=== PATIENT | female | born 1985 | race American Indian/Alaskan Native ===

== ENCOUNTER 2021-04-03 23:48 | Inpatient (IN) | payer OTHER ==
[2021-04-04] MEDS ORDERED: diphenhydrAMINE 50 MG/ML VIAL IV ONE ×2 (01:10→14:27)
[2021-04-04] MEDS ORDERED: methylPREDNISolone Sod Succinate 125 MG/2 ML INJ IV ONE (01:10)
--- NOTE | 2021-04-04 01:15 | Emergency Department Report ---
History of Present Illness - General Chief Complaint: Overdose Stated Complaint: OVERDOSE, PT FEELS LIKE TONGUE IS SWELLING Time Seen by Provider: 04/04/21 00:58 Source: EMS Mode of arrival: Stretcher Limitations: No Limitations - History of Present Illness Initial Comments: 36-year-old female presents to the ED in police custody for possible suicide at [facility] via pill overdose. Patient states she has a history of sickle cell trait. She is been incarcerated for last 8 months and has been feeling suicidal since her arrest. Patient thinks she is on Risperdal for "depression". She states she was initially refusing this medication from the snf. However, while medication was being administered to inmates she grabbed a handful of medications from the tray and swallowed them. The officer at the scene and the present I do not know which medications were on the tray. Patient complaining that her tongue intermittently feels stiff and like she is going to swallow it. Patient states history of suicidal ideation after being kicked out of her mot her's house at age 18. She denies auditory or visual hallucinations. Patient states she is vaccinated for COVID but has yet to receive her booster - Related Data Allergies Allergy/AdvReac Type Severity Reaction Status Date / Time No Known Allergies Allergy Unverified 04/04/21 01:46 ED Review of Systems ROS: Stated complaint: OVERDOSE, PT FEELS LIKE TONGUE IS SWELLING Other details as noted in HPI Comment: All other systems reviewed and negative ED Physical Exam - General Limitations: No Limitations - Other Other exam information: General: No acute distress Head: Atraumatic Eyes: normal appearance ENT: Moist mucous membranes, no tongue swelling, no hoarseness or muffled voice Neck: Normal appearance, no midline tenderness Chest: Clear to auscultation bilaterally CV: Regular rate and rhythm Abdomen: Soft, normal bowel sounds, nontender, nondistended, no rebound or g uarding Back: Normal inspection Extremity: Normal inspection, full range of motion Neuro: Alert O x 3, no facial asymmetry, speech clear, no gross motor sensory deficit Psych: Cooperative, slightly anxious, talkative, intermittent episode of feeling like her tongue is stiff. Patient is exhibiting signs of psychosis in the ED ED Course Vital Signs 04/04/21 00:44 Temperature 98.4 F Pulse Rate 104 H Respiratory 18 Rate Blood Pressure 152/83 [Left] O2 Sat by Pulse 97 Oximetry - Reevaluation(s) Reevaluation #1: 04/04/21 02:24 Patient did receive Benadryl and Solu-Medrol given tongue symptoms. I suspect that patient is having a dystonic reaction. Patient appeared to be familiar with this reaction in the past and was also requesting Benadryl Unfortunately the snf cannot specify which meds patient might have taken off the medication tray. Nurse here informs me that patient is urinating frequently in the ED. It is possible that patient might have taken a diuretic. Normal saline ordered for urinary frequency and mild hyponatremia. - Consultations Consultation #1: 04/04/21 04:26 case d/w Jadyn with poison control. Recommend 24-hour admission due to unknown ingestion. Recommends to monitor for toxidromes, hypoglycemia, QTC and QRS prolongation or bradycardia. Recommend vital sign monitoring. recommends to use benzo as needed for sedation and to avoid antipsychotics such as Haldol and Geodon due to risk of decreasing seizure threshold. If QRS greater than 100 recommend bicarb and to contact poison control for further instructions. Repeat chemistries, aspirin, and Tylenol 4 hours. Monitor glucose level. ED Medical Decision Making - Lab Data Result diagrams: 04/04/21 01:19 04/04/21 01:19 Lab Results 04/04/21 04/04/21 04/04/21 Range/Units 01:19 01:19 01:19 WBC 6.6 (4.5-11.0) K/mm3 RBC 4.09 (3.65-5.03) M/mm3 Hgb 11.5 L (11.8-15.2) gm/dl Hct 35.2 L (35.5-45.6) % MCV 86 (84-94) fl MCH 28 (28-32) pg MCHC 33 (32-34) % RDW 13.9 (13.2-15.2) % Plt Count 239 (140-440) K/mm3 Lymph % (Auto) 18.8 (13.4-35.0) % Carter % (Auto) 9.2 H (0.0-7.3) % Eos % (Auto) 0.2 (0.0-4.3) % Baso % (Auto) 0.6 (0.0-1.8) % Lymph # (Auto) 1.2 (1.2-5.4) K/mm3 Carter # (Auto) 0.6 (0.0-0.8) K/mm3 Eos # (Auto) 0.0 (0.0-0.4) K/mm3 Baso # (Auto) 0.0 (0.0-0.1) K/mm3 Seg Neutrophils % 71.2 H (40.0-70.0) % Seg Neutrophils # 4.7 (1.8-7.7) K/mm3 Sodium 133 L (137-145) mmol/L Potassium 3.7 (3.6-5.0) mmol/L Chloride 98.1 (98-107) mmol/L Carbon Dioxide 20 L (22-30) mmol/L Anion Gap 19 mmol/L BUN 7 L (9-20) mg/dL Creatinine 0.7 L (0.8-1.3) mg/dL Estimated GFR > 60 ml/min BUN/Creatinine Ratio 10 % Glucose 109 H (75-100) mg/dL Osmolality 274 Mosm/kg Calcium 8.7 (8.4-10.2) mg/dL Total Bilirubin 0.40 (0.1-1.2) mg/dL AST 34 (5-40) units/L ALT 24 (7-56) units/L Alkaline Phosphatase 64 (35-129) units/L Total Protein 6.9 (6.3-8.2) g/dL Albumin 4.2 (3.9-5) g/dL Albumin/Globulin Ratio 1.6 % HCG, Qual (Negative) Urine Color (Yellow) Urine Turbidity (Clear) Urine pH (5.0-7.0) Ur Specific [place] (1.003-1.030) Urine Protein (Negative) mg/dL Urine Glucose (UA) (Negative) mg/dL Urine Ketones (Negative) mg/dL Urine Blood (Negative) Urine Nitrite (Negative) Urine Bilirubin (Negative) Urine Urobilinogen (<2.0) mg/dL Ur Leukocyte Esterase (Negative) Urine WBC (Auto) (0.0-6.0) /HPF Urine RBC (Auto) (0.0-6.0) /HPF U Epithel Cells (Auto) (0-13.0) /HPF Salicylates (2.8-20.0) mg/dL Urine Opiates Screen Urine Methadone Screen Acetaminophen (10.0-30.0) ug/mL Ur Barbiturates Screen Ur Phencyclidine Scrn Ur Amphetamines Screen U Benzodiazepines Scrn Urine Cocaine Screen U Marijuana (THC) Screen Drugs of Abuse Note Plasma/Serum Alcohol (0-0.07) % 04/04/21 04/04/21 04/04/21 Range/Units 01:19 01:19 01:19 WBC (4.5-11.0) K/mm3 RBC (3.65-5.03) M/mm3 Hgb (11.8-15.2) gm/dl Hct (35.5-45.6) % MCV (84-94) fl MCH (28-32) pg MCHC (32-34) % RDW (13.2-15.2) % Plt Count (140-440) K/mm3 Lymph % (Auto) (13.4-35.0) % Carter % (Auto) (0.0-7.3) % Eos % (Auto) (0.0-4.3) % Baso % (Auto) (0.0-1.8) % Lymph # (Auto) (1.2-5.4) K/mm3 Carter # (Auto) (0.0-0.8) K/mm3 Eos # (Auto) (0.0-0.4) K/mm3 Baso # (Auto) (0.0-0.1) K/mm3 Seg Neutrophils % (40.0-70.0) % Seg Neutrophils # (1.8-7.7) K/mm3 Sodium (137-145) mmol/L Potassium (3.6-5.0) mmol/L Chloride (98-107) mmol/L Carbon Dioxide (22-30) mmol/L Anion Gap mmol/L BUN (9-20) mg/dL Creatinine (0.8-1.3) mg/dL Estimated GFR ml/min BUN/Creatinine Ratio % Glucose (75-100) mg/dL Osmolality Mosm/kg Calcium (8.4-10.2) mg/dL Total Bilirubin (0.1-1.2) mg/dL AST (5-40) units/L ALT (7-56) units/L Alkaline Phosphatase (35-129) units/L Total Protein (6.3-8.2) g/dL Albumin (3.9-5) g/dL Albumin/Globulin Ratio % HCG, Qual (Negative) Urine Color (Yellow) Urine Turbidity (Clear) Urine pH (5.0-7.0) Ur Specific [place] (1.003-1.030) Urine Protein (Negative) mg/dL Urine Glucose (UA) (Negative) mg/dL Urine Ketones (Negative) mg/dL Urine Blood (Negative) Urine Nitrite (Negative) Urine Bilirubin (Negative) Urine Urobilinogen (<2.0) mg/dL Ur Leukocyte Esterase (Negative) Urine WBC (Auto) (0.0-6.0) /HPF Urine RBC (Auto) (0.0-6.0) /HPF U Epithel Cells (Auto) (0-13.0) /HPF Salicylates < 0.3 L (2.8-20.0) mg/dL Urine Opiates Screen Urine Methadone Screen Acetaminophen 5.0 L (10.0-30.0) ug/mL Ur Barbiturates Screen Ur Phencyclidine Scrn Ur Amphetamines Screen U Benzodiazepines Scrn Urine Cocaine Screen U Marijuana (THC) Screen Drugs of Abuse Note Plasma/Serum Alcohol < 0.01 (0-0.07) % 04/04/21 04/04/21 04/04/21 Range/Units 01:19 Unknown Unknown WBC (4.5-11.0) K/mm3 RBC (3.65-5.03) M/mm3 Hgb (11.8-15.2) gm/dl Hct (35.5-45.6) % MCV (84-94) fl MCH (28-32) pg MCHC (32-34) % RDW (13.2-15.2) % Plt Count (140-440) K/mm3 Lymph % (Auto) (13.4-35.0) % Carter % (Auto) (0.0-7.3) % Eos % (Auto) (0.0-4.3) % Baso % (Auto) (0.0-1.8) % Lymph # (Auto) (1.2-5.4) K/mm3 Carter # (Auto) (0.0-0.8) K/mm3 Eos # (Auto) (0.0-0.4) K/mm3 Baso # (Auto) (0.0-0.1) K/mm3 Seg Neutrophils % (40.0-70.0) % Seg Neutrophils # (1.8-7.7) K/mm3 Sodium (137-145) mmol/L Potassium (3.6-5.0) mmol/L Chloride (98-107) mmol/L Carbon Dioxide (22-30) mmol/L Anion Gap mmol/L BUN (9-20) mg/dL Creatinine (0.8-1.3) mg/dL Estimated GFR ml/min BUN/Creatinine Ratio % Glucose (75-100) mg/dL Osmolality Mosm/kg Calcium (8.4-10.2) mg/dL Total Bilirubin (0.1-1.2) mg/dL AST (5-40) units/L ALT (7-56) units/L Alkaline Phosphatase (35-129) units/L Total Protein (6.3-8.2) g/dL Albumin (3.9-5) g/dL Albumin/Globulin Ratio % HCG, Qual Negative (Negative) Urine Color Colorless (Yellow) Urine Turbidity Clear (Clear) Urine pH 7.0 (5.0-7.0) Ur Specific [place] 1.005 (1.003-1.030) Urine Protein <15 mg/dl (Negative) mg/dL Urine Glucose (UA) Neg (Negative) mg/dL Urine Ketones Neg (Negative) mg/dL Urine Blood Neg (Negative) Urine Nitrite Neg (Negative) Urine Bilirubin Neg (Negative) Urine Urobilinogen < 2.0 (<2.0) mg/dL Ur Leukocyte Esterase Neg (Negative) Urine WBC (Auto) 0.0 (0.0-6.0) /HPF Urine RBC (Auto) < 1.0 (0.0-6.0) /HPF U Epithel Cells (Auto) < 1.0 (0-13.0) /HPF Salicylates (2.8-20.0) mg/dL Urine Opiates Screen Negative Urine Methadone Screen Negative Acetaminophen (10.0-30.0) ug/mL Ur Barbiturates Screen Negative Ur Phencyclidine Scrn Negative Ur Amphetamines Screen Negative U Benzodiazepines Scrn Negative Urine Cocaine Screen Negative U Marijuana (THC) Screen Negative Drugs of Abuse Note Disclamer Plasma/Serum Alcohol (0-0.07) % - EKG Data EKG shows normal: sinus rhythm, intervals (QTC 445), QRS complexes (QRS duration 77), ST-T waves (No STEMI) Rate: normal (93) - EKG Data 04/04/21 05:02 Repeat EKG at 4:56 AM shows mild tachycardia heart rate 105 with stable QRS duration and QTC - Medical Decision Making 36-year-old female presents to the hospital unknown ingestion. At time of ED evaluation patient exhibiting signs of dystonia and treated with Benadryl. Patient also having urinary frequency and normal saline initiated. Repeat labs ordered per recommendation of poison control. Patient require admission to the hospital for monitoring of toxidromes, changes in EKG, changes in vital signs, and labs. Poison control welcomes any call backs to discuss treatment for any acute changes. Dr Tucker informed of admission 1013 signed consult requested Critical Care Time: Yes Critical care attestation.: If time is entered above; I have spent that time in minutes in the direct care of this critically ill patient, excluding procedure time. Critical Care Time: 35 Minutes of critical care time excluding procedures were used in the care of the patient. I came immediately to the bedside upon patient's arrival. I obtained history from EMS at the bedside. I discussed treatment plan with the nursing team members. I reviewed electronic record. Patient required multiple interventions and reassessments. Poison control contacted ED Disposition Clinical Impression: Suicide attempt, Overdose, In police custody Disposition: ADMITTED INPATIENT Is pt being admited?: Yes Does the pt Need Aspirin: No Condition: Stable Referrals: PRIMARY CARE, [Primary Care Provider] - 3-5 Days Time of Disposition: 04:43 (Dr Felix)
[2021-04-04 01:35] LABS: Basophils % (Auto) 0.6 % (0.0-1.8); Eosinophils % (Auto) 0.2 % (0.0-4.3); Hematocrit 35.2 % (35.5-45.6); Hemoglobin 11.5 gm/dl (11.8-15.2); Lymphocytes # (Auto) 1.2 K/mm3 (1.2-5.4); Lymphocytes % (Auto) 18.8 % (13.4-35.0); Mean Corpuscular HGB Conc 33 % (32-34); Mean Corpuscular Volume 86 fl (84-94); Monocytes # (Auto) 0.6 K/mm3 (0.0-0.8); Monocytes % (Auto) 9.2 % (0.0-7.3); Platelet Count 239 K/mm3 (140-440); Red Blood Count 4.09 M/mm3 (3.65-5.03); Red Cell Distribution Width 13.9 % (13.2-15.2)
[2021-04-04 01:58] LABS: Alanine Aminotransferase 24 units/L (7-56); Albumin 4.2 g/dL (3.9-5); Blood Urea Nitrogen 7 mg/dL (9-20); Calcium 8.7 mg/dL (8.4-10.2); Hemolysis Index 7
[2021-04-04 02:09] LABS: BUN/Creatinine Ratio 10
[2021-04-04] MEDS ORDERED: SODIUM CHLORIDE 0.9% 1000 ML 1,000 ML IV ONE (02:20)
[2021-04-04 02:27] LABS: Bilirubin,Urine NEG (Negative); Blood,Urine NEG (Negative); Color,Urine Colorless (Yellow); Protein,Urine <15 mg/dL mg/dL (Negative); RBC,Urine < 1.0 /HPF (0.0-6.0); Urobilinogen,Urine < 2.0 mg/dL (<2.0)
[2021-04-04 02:55] LABS: Amphetamine Screen,Urine Negative; Benzodiazepines Screen,Urine Negative; Cannabinoid Screen,Urine Negative; Cocaine Screen,Urine Negative; Methadone Screen,Urine Negative; Opiate Screen,Urine Negative
[2021-04-04] MEDS ORDERED: MORPHINE 4 MG/1 ML INJ IV PRN (05:19)
[2021-04-04] MEDS ORDERED: MAGNESIUM HYDROXIDE (MOM) ORAL LIQD UDC PO PRN (05:19)
[2021-04-04] MEDS ORDERED: MORPHINE 2 MG/1 ML INJ IV PRN (05:19)
[2021-04-04] MEDS ORDERED: ONDANSETRON 4 MG/2 ML INJ IV PRN (05:19)
[2021-04-04] MEDS ORDERED: ACETAMINOPHEN 325 MG TAB PO PRN (05:19)
--- NOTE | 2021-04-04 05:24 | History and Physical Report ---
History of Present Illness Date of examination: 04/04/21 Date of admission: 04/04/2021 Chief complaint: Drug overdose History of present illness: 36-year-old -[place] female currently in police custody brought into the emergency room for possible suicide attempt after taking overdose of unknown medications. Patient was said to be in [facility] and while medication was being passed she took a handful of medications being passed. Medications are unknown. Patient states she has been feeling suicidal lately because she has been incarcerated for about 8 months. She has known history of depression and she thinks she is on Risperdal. She had history of suicidal ideation in the past at age 18. Patient denies any homicidal ideations and also indicates she currently does not have any suicidal ideations. Patient states that since the ingestion she has had to urinate more frequently. Patient denies any chest pain or shortness of breath, no nausea vomiting and no abdominal pain. She denies any headache or dizziness denies any diaphoresis. Work-up in the emergency room today, significant findings on the labs were sodium of 133. Poison control was consulted by the ER physician and recommendation was to monitor patient closely. Past History Past Medical History: other (Depression) Past Surgical History: Other (Laceration repair on the scalp) Family history: no significant family history Medications and Allergies Allergies Allergy/AdvReac Type Severity Reaction Status Date / Time No Known Allergies Allergy Unverified 04/04/21 01:46 Active Meds: Active Medications Acetaminophen (Acetaminophen 325 Mg Tab) 650 mg PO Q4H PRN PRN Reason: Pain MILD(1-3)/Fever >100.5/OSEGUERA Heparin Sodium (Porcine) (Heparin 5,000 Unit/1 Ml Vial) 5,000 unit SUB-Q Q8HR MERLY Sodium Chloride (Nacl 0.9% 1000 Ml) 1,000 mls @ 125 mls/hr IV DIRECT MERLY Magnesium Hydroxide (Magnesium Hydroxide (Mom) Oral Liqd Udc) 30 ml PO Q4H PRN PRN Reason: Constipation Morphine Sulfate (Morphine 4 Mg/1 Ml Inj) 4 mg IV Q4H PRN PRN Reason: Pain , Severe (7-10) Morphine Sulfate (Morphine 2 Mg/1 Ml Inj) 2 mg IV Q4H PRN PRN Reason: Pain, Moderate (4-6) Ondansetron HCl (Ondansetron 4 Mg/2 Ml Inj) 4 mg IV Q8H PRN PRN Reason: Nausea And Vomiting Sodium Chloride (Sodium Chloride 0.9% 10 Ml Flush Syringe) 10 ml IV BID MERLY Sodium Chloride (Sodium Chloride 0.9% 10 Ml Flush Syringe) 10 ml IV PRN PRN PRN Reason: LINE FLUSH Review of Systems Constitutional: no fever, no chills Ears, nose, mouth and throat: no nasal congestion, no sore throat Cardiovascular: no chest pain, no palpitations Respiratory: no cough, no shortness of breath Gastrointestinal: no abdominal pain, no nausea, no vomiting, no diarrhea Genitourinary Female: no dysmenorrhea, no pelvic pain, no flank pain, no dysuria, no hematuria Musculoskeletal: no neck pain, no low back pain Integumentary: no rash, no pruritis Neurological: no headaches, no confusion Psychiatric: no anxiety, no insomnia Endocrine: no polyphagia, no polydipsia, no polyuria, no nocturia Exam - Constitutional Vitals: Temp Pulse Resp BP Pulse Ox 98.4 F 104 H 18 152/83 97 04/04/21 00:44 04/04/21 00:44 04/04/21 00:44 04/04/21 00:44 04/04/21 00:44 General appearance: Present: no acute distress, well-nourished - EENT Eyes: Present: PERRL, EOM intact. Absent: scleral icterus ENT: hearing intact, clear oral mucosa, dentition normal - Neck Neck: Present: supple, normal ROM - Respiratory Respiratory effort: normal Respiratory: bilateral: CTA - Cardiovascular Rhythm: regular Heart Sounds: Present: S1 & S2. Absent: systolic murmur, diastolic murmur, rub, click - Extremities Extremities: no ischemia, pulses intact, pulses symmetrical, No edema, normal temperature, normal color, Full ROM Peripheral Pulses: within normal limits - Abdominal General gastrointestinal: Present: soft, non-tender, non-distended, normal bowel sounds. Absent: mass - Integumentary Integumentary: Present: clear, warm, dry. Absent: rash - Musculoskeletal Musculoskeletal: strength equal bilaterally - Psychiatric Psychiatric: appropriate mood/affect, intact judgment & insight, memory intact - Neurologic Neurologic: CNII-XII intact, no focal deficits, moves all extremities Results - Labs CBC & Chem 7: 04/04/21 01:19 04/04/21 05:27 Labs: Abnormal lab results 04/04/21 04/04/21 04/04/21 Range/Units 01:19 01:19 01:19 Hgb 11.5 L (11.8-15.2) gm/dl Hct 35.2 L (35.5-45.6) % Gregg % (Auto) 9.2 H (0.0-7.3) % Seg Neutrophils % 71.2 H (40.0-70.0) % Sodium 133 L (137-145) mmol/L Carbon Dioxide 20 L (22-30) mmol/L BUN 7 L (9-20) mg/dL Creatinine 0.7 L (0.8-1.3) mg/dL Glucose 109 H (75-100) mg/dL Salicylates < 0.3 L (2.8-20.0) mg/dL Acetaminophen (10.0-30.0) ug/mL 04/04/21 Range/Units 01:19 Hgb (11.8-15.2) gm/dl Hct (35.5-45.6) % Gregg % (Auto) (0.0-7.3) % Seg Neutrophils % (40.0-70.0) % Sodium (137-145) mmol/L Carbon Dioxide (22-30) mmol/L BUN (9-20) mg/dL Creatinine (0.8-1.3) mg/dL Glucose (75-100) mg/dL Salicylates (2.8-20.0) mg/dL Acetaminophen 5.0 L (10.0-30.0) ug/mL Assessment and Plan - Patient Problems (1) Overdose Current Visit: Yes Status: Acute Plan to address problem: Patient took a handful of medications [intentional]names unknown. Will monitor closely. (2) Suicide attempt Current Visit: Yes Status: Acute Plan to address problem: Patient has known history of depression. She has been incarcerated for about 8 months. Consult will be placed to mental health for evaluation. (3) DVT prophylaxis Current Visit: Yes Status: Acute Plan to address problem: Patient placed on subcutaneous heparin. (4) Full code status Current Visit: Yes Status: Acute Plan to address problem: Patient is full code.
[2021-04-04 06:06] LABS: Blood Urea Nitrogen 9 mg/dL (7-17); Calcium 9.3 mg/dL (8.4-10.2); Hemolysis Index 8
[2021-04-04 06:18] LABS: BUN/Creatinine Ratio 13
[2021-04-04] MEDS: HEPARIN 5,000 UNIT/1 ML VIAL SUB-Q SCH ×3 (13:58→21:33)
[2021-04-04] MEDS ORDERED: HALOPERIDOL LACTATE 5 MG/1 ML INJ IM SCH (14:00)
--- NOTE | 2021-04-04 14:10 | Event Note ---
Date: 04/04/21 Patient seen in emergency department. Very agitated with pressured speech. She is unsure of what substances she ingested. Reports suicidal ideation currently without a plan. Has attempted suicide in the past but was unsuccessful. Awaiting mental health evaluation. Poison control contacted and updated nurse. Poison control recommends supportive care at this time.
[2021-04-04] MEDS ORDERED: diphenhydrAMINE 50 MG/ML VIAL ONE (14:11)
[2021-04-04] MEDS ORDERED: SODIUM CHLORIDE 0.9% 50 ML IVPB IV PRN (15:24)
[2021-04-04] MEDS: SODIUM CHLORIDE 0.9% 1000 ML 1,000 ML IV SCH (21:37)
[2021-04-05 05:43] LABS: Alanine Aminotransferase 19 units/L (7-56); Albumin 3.7 g/dL (3.9-5); BUN/Creatinine Ratio 18; Blood Urea Nitrogen 16 mg/dL (7-17); Calcium 8.7 mg/dL (8.4-10.2); Hemolysis Index 4
[2021-04-05] MEDS: HEPARIN 5,000 UNIT/1 ML VIAL SUB-Q SCH ×2 (05:55→15:24)
[2021-04-05] MEDS ORDERED: diphenhydrAMINE 25 MG/10 ML ORAL LIQUID PO ONE (06:45)
--- NOTE | 2021-04-05 08:54 | Electrocardiograph Report ---
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
--- NOTE | 2021-04-05 08:54 | Electrocardiograph Report ---
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
--- NOTE | 2021-04-05 08:58 | Electrocardiograph Report ---
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
--- NOTE | 2021-04-05 11:26 | Progress Note ---
Assessment and Plan Assessment and plan: 36-year-old -[place] female currently in police custody brought into the emergency room for possible suicide attempt after taking overdose of unknown medications. Patient was said to be in detention and while medication was being passed she took a handful of medications being passed. Medications are unknown. Patient states she has been feeling suicidal lately because she has been incarcerated for about 8 months. She has known history of depression and she thinks she is on Risperdal. She had history of suicidal ideation in the past at age 18. Patient denies any homicidal ideations and also indicates she currently does not have any suicidal ideations. Patient states that since the ingestion she has had to urinate more frequently. Patient denies any chest pain or shortness of breath, no nausea vomiting and no abdominal pain. She denies any headache or dizziness denies any diaphoresis. Work-up in the emergency room, significant findings on the labs were sodium of 133. Poison control was consulted by the ER physician and recommendation was to monitor patient closely. (1) Overdose Current Visit: Yes Status: Acute Plan to address problem: Patient took a handful of medications [intentional]names unknown. Will monitor closely. Patient reports that she held Resporal for 3 days and took all 3 on the day of her admission. She further states that she is back to ER due to sleepiness and could not breathe. She is currently hemodynamically stable. (2) Suicide attempt Current Visit: Yes Status: Acute Plan to address problem: Patient has known history of depression. She has been incarcerated for about 8 months. Patient currently denies suicidal ideation. She is calm and cooperative. Patient was evaluated by psychiatry in consultation today and recommended to discontinue 1013. Started Abilify 10 mg daily and trazodone 50 mg at bedtime. Psychiatry cleared her discharge. [facility]charge back to [facility] today. Recommended to see a psychiatrist for follow-up. (3) DVT prophylaxis Current Visit: Yes Status: Acute Plan to address problem: Patient placed on subcutaneous heparin. (4) Full code status Current Visit: Yes Status: Acute Plan to address problem: Patient is full code. History Interval history: Patient is currently calm, cooperative, alert and oriented. Stable vital signs. She currently denies suicidal ideation. trouble dispatcher is present given Hospitalist Physical - Constitutional Vitals: Temp Pulse Resp BP Pulse Ox 99.0 F 98 H 20 141/91 98 04/05/21 10:27 04/05/21 10:27 04/05/21 10:27 04/05/21 10:27 04/05/21 10:27 General appearance: Present: no acute distress, well-nourished - EENT Eyes: Present: PERRL. Absent: scleral icterus ENT: clear oral mucosa - Neck Neck: Present: supple - Respiratory Respiratory effort: normal Respiratory: bilateral: CTA - Cardiovascular Rhythm: regular - Extremities Extremities: No edema - Abdominal General gastrointestinal: soft, non-tender - Psychiatric Psychiatric: appropriate mood/affect, cooperative - Neurologic Neurologic: no focal deficits Results - Labs CBC & Chem 7: 04/04/21 01:19 04/05/21 04:28 Labs: Laboratory Last Values WBC 6.6 K/mm3 (4.5-11.0) 04/04/21 01:19 RBC 4.09 M/mm3 (3.65-5.03) 04/04/21 01:19 Hgb 11.5 gm/dl (11.8-15.2) L 04/04/21 01:19 Hct 35.2 % (35.5-45.6) L 04/04/21 01:19 MCV 86 fl (84-94) 04/04/21 01:19 MCH 28 pg (28-32) 04/04/21 01:19 MCHC 33 % (32-34) 04/04/21 01:19 RDW 13.9 % (13.2-15.2) 04/04/21 01:19 Plt Count 239 K/mm3 (140-440) 04/04/21 01:19 Lymph % (Auto) 18.8 % (13.4-35.0) 04/04/21 01:19 Gonzales % (Auto) 9.2 % (0.0-7.3) H 04/04/21 01:19 Eos % (Auto) 0.2 % (0.0-4.3) 04/04/21 01:19 Baso % (Auto) 0.6 % (0.0-1.8) 04/04/21 01:19 Lymph # (Auto) 1.2 K/mm3 (1.2-5.4) 04/04/21 01:19 Gonzales # (Auto) 0.6 K/mm3 (0.0-0.8) 04/04/21 01:19 Eos # (Auto) 0.0 K/mm3 (0.0-0.4) 04/04/21 01:19 Baso # (Auto) 0.0 K/mm3 (0.0-0.1) 04/04/21 01:19 Seg Neutrophils % 71.2 % (40.0-70.0) H 04/04/21 01:19 Seg Neutrophils # 4.7 K/mm3 (1.8-7.7) 04/04/21 01:19 Sodium 143 mmol/L (137-145) D 04/05/21 04:28 Potassium 3.9 mmol/L (3.6-5.0) 04/05/21 04:28 Chloride 110.4 mmol/L (98-107) H 04/05/21 04:28 Carbon Dioxide 21 mmol/L (22-30) L 04/05/21 04:28 Anion Gap 16 mmol/L 04/05/21 04:28 BUN 16 mg/dL (7-17) 04/05/21 04:28 Creatinine 0.9 mg/dL (0.6-1.2) 04/05/21 04:28 Estimated GFR > 60 ml/min 04/05/21 04:28 BUN/Creatinine Ratio 18 % 04/05/21 04:28 Glucose 107 mg/dL (65-100) H 04/05/21 04:28 Osmolality 274 Mosm/kg 04/04/21 01:19 Lactic Acid 1.00 mmol/L (0.7-2.0) 04/04/21 16:25 Calcium 8.7 mg/dL (8.4-10.2) 04/05/21 04:28 Magnesium 1.90 mg/dL (1.7-2.3) 04/04/21 05:27 Total Bilirubin < 0.20 mg/dL (0.1-1.2) 04/05/21 04:28 AST 20 units/L (5-40) 04/05/21 04:28 ALT 19 units/L (7-56) 04/05/21 04:28 Alkaline Phosphatase 58 units/L (35-129) 04/05/21 04:28 Total Protein 6.3 g/dL (6.3-8.2) 04/05/21 04:28 Albumin 3.7 g/dL (3.9-5) L 04/05/21 04:28 Albumin/Globulin Ratio 1.4 % 04/05/21 04:28 HCG, Qual Negative (Negative) 04/04/21 01:19 Urine Color Colorless (Yellow) 04/04/21 Unknown Urine Turbidity Clear (Clear) 04/04/21 Unknown Urine pH 7.0 (5.0-7.0) 04/04/21 Unknown Ur Specific [place] 1.005 (1.003-1.030) 04/04/21 Unknown Urine Protein <15 mg/dl mg/dL (Negative) 04/04/21 Unknown Urine Glucose (UA) Neg mg/dL (Negative) 04/04/21 Unknown Urine Ketones Neg mg/dL (Negative) 04/04/21 Unknown Urine Blood Neg (Negative) 04/04/21 Unknown Urine Nitrite Neg (Negative) 04/04/21 Unknown Urine Bilirubin Neg (Negative) 04/04/21 Unknown Urine Urobilinogen < 2.0 mg/dL (<2.0) 04/04/21 Unknown Ur Leukocyte Esterase Neg (Negative) 04/04/21 Unknown Urine WBC (Auto) 0.0 /HPF (0.0-6.0) 04/04/21 Unknown Urine RBC (Auto) < 1.0 /HPF (0.0-6.0) 04/04/21 Unknown U Epithel Cells (Auto) < 1.0 /HPF (0-13.0) 04/04/21 Unknown Salicylates < 0.3 mg/dL (2.8-20.0) L 04/04/21 05:27 Urine Opiates Screen Negative 04/04/21 Unknown Urine Methadone Screen Negative 04/04/21 Unknown Acetaminophen 5.0 ug/mL (10.0-30.0) L 04/04/21 05:27 Ur Barbiturates Screen Negative 04/04/21 Unknown Ur Phencyclidine Scrn Negative 04/04/21 Unknown Ur Amphetamines Screen Negative 04/04/21 Unknown U Benzodiazepines Scrn Negative 04/04/21 Unknown Urine Cocaine Screen Negative 04/04/21 Unknown U Marijuana (THC) Screen Negative 04/04/21 Unknown Drugs of Abuse Note Disclamer 04/04/21 Unknown Plasma/Serum Alcohol < 0.01 % (0-0.07) 04/04/21 01:19 Active Medications - Current Medications Current Medications: Generic Name Dose Route Start Last Admin Trade Name Freq PRN Reason Stop Dose Admin Acetaminophen 650 mg 04/04/21 05:19 Acetaminophen 325 Mg Tab PO Q4H PRN Pain MILD(1-3)/Fever >100.5/OSEGUERA Heparin Sodium (Porcine) 5,000 unit 04/04/21 06:00 04/05/21 05:55 Heparin 5,000 Unit/1 Ml Vial SUB-Q 5,000 unit Q8HR MERLY Administration Sodium Chloride 1,000 mls @ 125 mls/hr 04/04/21 05:30 04/04/21 21:37 Nacl 0.9% 1000 Ml IV 125 mls/hr DIRECT MERLY Administration Magnesium Hydroxide 30 ml 04/04/21 05:19 Magnesium Hydroxide (Mom) Oral Liqd Udc PO Q4H PRN Constipation Morphine Sulfate 4 mg 04/04/21 05:19 Morphine 4 Mg/1 Ml Inj IV Q4H PRN Pain , Severe (7-10) Morphine Sulfate 2 mg 04/04/21 05:19 Morphine 2 Mg/1 Ml Inj IV Q4H PRN Pain, Moderate (4-6) Ondansetron HCl 4 mg 04/04/21 05:19 Ondansetron 4 Mg/2 Ml Inj IV Q8H PRN Nausea And Vomiting Sodium Chloride 10 ml 04/04/21 10:00 04/04/21 21:37 Sodium Chloride 0.9% 10 Ml Flush Syringe IV 10 ml BID MERLY Administration Sodium Chloride 10 ml 04/04/21 15:24 Sodium Chloride 0.9% 50 Ml Ivpb IV PRN PRN FLUSH
--- NOTE | 2021-04-05 12:24 | Consultation ---
History of Present Illness - Reason for Consult Consult date: 04/05/21 Reason for consult: suicidal attempt - Chief Complaint Chief complaint: Drug overdose - History of Present Psychiatric Illness Per Note: 36-year-old -[place] female currently in police custody brought into the emergency room for possible suicide attempt after taking overdose of unknown medications. Patient was said to be in assisted and while medication was being passed she took a handful of medications being passed. Medications are unknown.Patient states she has been feeling suicidal lately because she has been incarcerated for about 8 months. She has known history of depression and she thinks she is on Risperdal. She had history of suicidal ideation in the past at age 18. Patient denies any homicidal ideations and also indicates she currently does not have any suicidal ideations. Francisca John is a 36 year old female with history of depression per note. In my interview with the patient, she is calm, alert and oriented x3. The patient states that she is in assisted for violation of probation; incarcerated for about 9 months. The patient denies having any psychiatric diagnosis, states she has been fighting while in assisted and has been getting Risperidone and Haldol " I had a reaction to the medications they gave me." The patient denies being depressed or excessively anxious. She denies any current suicidal/homicidal ideation and denies hallucinations. PAST PSYCHIATRIC HISTORY: Diagnoses: Depression - per note Suicide attempts or Self-harm behavior: Yes Prior psychiatric hospitalizations: Yes Substance Abuse history: " all kind of drugs" Previous psychiatric medications tried:Risperidone, Haldol Outpatient treatment:Yes PAST MEDICAL HISTORY: Family Psychiatric History: None reported or documented SOCIAL HISTORY Marital Status: Single Living Arrangements:Long Term Employment Status:Unemployed Access to guns/weapons: Denies Education: 10th History of Abuse: Denies Legal History:Currently in assisted for violation of probation REVIEW OF SYSTEMS Constitutional: Negative for weight loss ENT: Negative for stridor Respiratory: Negative for cough or hemoptysis All other systems reviewed and are negative MENTAL STATUS EXAMINATION General Appearance and Behavior: Age appropriate, good hygiene, wearing appropriate clothes, cooperative polite with questioning. Cooperation: cooperative Psychomotor Behavior: Normal Mood:Labile Affect and affective range:congruent Thought Process:Circumstantial Thought Content:Reality oriented Speech:Normal Intellectual Functioning: Average Suicidal Ideation:Denies Homicidal Ideation: Denies Hallucination: Denies Impulse Control:Questionable Insight and Judgment:poor insight and poor judgment Memory: Intact Attention:Distractible Orientation: Alert and oriented DX: Major depressive disorder Treatment Plan: Continue - Home Medications. DC 1013 Start Abilify 10mg po daily Start Trazodone 50mg po QHs Patient should be compliant with medications and not to use drugs and not to drink alcohol. PSYCHOTHERAPY: Supportive psychotherapy provided MEDICAL: Per primary team DELIRIUM PRECAUTIONS: Please re-orient patient frequently, keep lights on during the day, and minimize benzodiazepines and opiates as these medications could worsen patient's confusion. BLOOD TESTER: Per medical team DISPOSITION: Do not recommend acute inpatient psychiatric hospitalization at this time. FOLLOW-UP: Will follow for medication management. Thank you for the consult. Please contact with any questions and/or concerns. Medications and Allergies Allergies Allergy/AdvReac Type Severity Reaction Status Date / Time No Known Allergies Allergy Unverified 04/04/21 01:46 Active Meds: Active Medications Acetaminophen (Acetaminophen 325 Mg Tab) 650 mg PO Q4H PRN PRN Reason: Pain MILD(1-3)/Fever >100.5/OSEGUERA Heparin Sodium (Porcine) (Heparin 5,000 Unit/1 Ml Vial) 5,000 unit SUB-Q Q8HR [facility] Last Admin: 04/05/21 05:55 Dose: 5,000 unit Sodium Chloride (Nacl 0.9% 1000 Ml) 1,000 mls @ 125 mls/hr IV DIRECT [facility] Last Admin: 04/04/21 21:37 Dose: 125 mls/hr Magnesium Hydroxide (Magnesium Hydroxide (Mom) Oral Liqd Udc) 30 ml PO Q4H PRN PRN Reason: Constipation Morphine Sulfate (Morphine 4 Mg/1 Ml Inj) 4 mg IV Q4H PRN PRN Reason: Pain , Severe (7-10) Morphine Sulfate (Morphine 2 Mg/1 Ml Inj) 2 mg IV Q4H PRN PRN Reason: Pain, Moderate (4-6) Ondansetron HCl (Ondansetron 4 Mg/2 Ml Inj) 4 mg IV Q8H PRN PRN Reason: Nausea And Vomiting Sodium Chloride (Sodium Chloride 0.9% 10 Ml Flush Syringe) 10 ml IV BID [facility] Last Admin: 04/04/21 21:37 Dose: 10 ml Sodium Chloride (Sodium Chloride 0.9% 50 Ml Ivpb) 10 ml IV PRN PRN PRN Reason: FLUSH Mental Status Exam - Vital signs Last Vital Signs Temp 99.2 F 04/05/21 11:39 Pulse 92 H 04/05/21 11:39 Resp 18 04/05/21 11:39 BP 127/70 04/05/21 11:39 Pulse Ox 96 04/05/21 11:39 Results Result Diagrams: 04/04/21 01:19 04/05/21 04:28 Abnormal lab results 04/05/21 Range/Units 04:28 Chloride 110.4 H (98-107) mmol/L Carbon Dioxide 21 L (22-30) mmol/L Glucose 107 H (65-100) mg/dL Albumin 3.7 L (3.9-5) g/dL All other labs normal.
[2021-04-05] MEDS ORDERED: ARIPiprazole 10 MG TAB PO SCH (13:00)
[2021-04-05] MEDS: SODIUM CHLORIDE 0.9% 1000 ML 1,000 ML IV SCH (15:24)
--- NOTE | 2021-04-05 15:43 | Discharge Summary ---
Providers - Providers Date of Admission: 04/04/21 10:13 Date of discharge: 04/04/21 Attending physician: KEMAR ANGEL MD 04/04/21 14:08 Consult to Mental Health [CONS] Routine Reason For Exam: suicide attempt Primary care physician: [employer] Hospitalization Condition: Stable Hospital course: 36-year-old -[place] female currently in police custody brought into the emergency room for possible suicide attempt after taking overdose of unknown medications. Patient was said to be in long-term and while medication was being passed she took a handful of medications being passed. Medications are unknown. Patient states she has been feeling suicidal lately because she has been incarcerated for about 8 months. She has known history of depression and she thinks she is on Risperdal. She had history of suicidal ideation in the past at age 18. Patient denies any homicidal ideations and also indicates she currently does not have any suicidal ideations. Patient states that since the ingestion she has had to urinate more frequently. Patient denies any chest pain or shortness of breath, no nausea vomiting and no abdominal pain. She denies any headache or dizziness denies any diaphoresis. Work-up in the emergency room, significant findings on the labs were sodium of 133 which resolved with IV fluids. Poison control was consulted by the ER physician and recommendation was to monitor patient closely. (1) Overdose Current Visit: Yes Status: Acute Plan to address problem: Patient took a handful of medications [intentional]names unknown. Patient was admitted and monitored. Patient reports that she held Resporal for 3 days and took all 3 on the day of her admission. She further states that she is back to ER due to sleepiness and could not breathe. She is currently hemodynamically stable. (2) Suicide attempt Current Visit: Yes Status: Acute Plan to address problem: Patient has known history of depression. She has been incarcerated for about 8 months. Patient currently denies suicidal ideation. She is calm and cooperative. Patient was evaluated by psychiatry in consultation today and recommended to discontinue 1013. Started Abilify 10 mg daily and trazodone 50 mg at bedtime. Psychiatry cleared her discharge. Discharge back to group home today. Recommended to see a psychiatrist for follow-up. Disposition: [address]W ENFORCEMENT Final Discharge Diagnosis (Prints w/discharge instructions): Suicidal attempt with drug over dose. History of depression Core Measure Documentation - Palliative Care Palliative Care/ Comfort Measures: Not Applicable - Core Measures Any of the following diagnoses?: none Exam - Constitutional Vitals: Temp Pulse Resp BP Pulse Ox 99.2 F 92 H 18 127/70 96 04/05/21 11:39 04/05/21 11:39 04/05/21 11:39 04/05/21 11:39 04/05/21 11:39 General appearance: Present: no acute distress, well-nourished - EENT Eyes: Present: PERRL. Absent: scleral icterus ENT: hearing intact, clear oral mucosa - Neck Neck: Present: supple - Respiratory Respiratory: bilateral: CTA - Cardiovascular Rhythm: regular - Extremities Extremities: No edema - Abdominal General gastrointestinal: Present: soft, non-tender - Integumentary Integumentary: Absent: rash - Musculoskeletal Musculoskeletal: strength equal bilaterally - Psychiatric Psychiatric: appropriate mood/affect, cooperative - Neurologic Neurologic: no focal deficits Plan Activity: no restrictions Diet: regular Additional Instructions: Need to have a follow-up with a psychiatrist in 1 week Follow up with: PRIMARY CARE, [Primary Care Provider] - 3-5 Days Prescriptions: traZODone [Desyrel] 50 mg PO QHS #30 tablet ARIPiprazole [Abilify TAB] 10 mg PO QDAY #30 tablet
[2021-04-05 16:13] VITALS: BP 137/97
[2021-04-05] MEDS ORDERED: traZODone 50 MG TAB PO SCH (22:00)
== END 2021-04-05 18:02 | DRG 918 ==
LOC: EDSEX → ED 23:48 → EEVIPCON 04-04 05:19 → 3A 04-04 05:19 → OBSVTOIN 04-04 10:13 → 3A 04-05 06:28
PROVIDERS: ADMIT Internal Medicine Geriatric Medicine; ATTEND Internal Medicine
DX: T50.902A Poisoning by unspecified drugs, medicaments and biological substances, intentional self-harm, initial encounter (principal); T14.91XA Suicide attempt, initial encounter; Y92.89 Other specified places as the place of occurrence of the external cause; D32.9 Benign neoplasm of meninges, unspecified
CPT/HCPCS: 36415; 80048; 80053; 80307; 80320; 81001; 82140; 83735; 83930; 84703; 85025; 93005; 93010; G0378; Q0162; G0480; J1200; J1630; J1644; J2930; J7030; Q0163